=== PATIENT | female | born 1970 | race American Indian/Alaskan Native ===

== ENCOUNTER 2016-12-20 17:45 | Emergency (ER) | payer SELFPAY ==
[2016-12-20 17:52] VITALS: BP 136/83
[2016-12-20 18:40] LABS: Basophils % (Auto) 0.7 % (0.0-1.8); Hematocrit 38.6 % (30.3-42.9); Hemoglobin 12.7 gm/dl (10.1-14.3); Mean Corpuscular HGB Conc 33 % (30-34); Mean Corpuscular Hemoglobin 28 pg (28-32); Mean Corpuscular Volume 86 fl (79-97); Platelet Count 259 K/mm3 (140-440); Red Blood Count 4.51 M/mm3 (3.65-5.03); Red Cell Distribution Width 14.8 % (13.2-15.2); White Blood Count 6.4 K/mm3 (4.5-11.0)
--- NOTE | 2016-12-20 18:40 | Emergency Department Report ---
Chief Complaint: Chest Pain Stated Complaint: CHEST PAIN Time Seen by Provider: 12/20/16 18:21 - HPI History of Present Illness: Patient complain in off chest pain that started at around 4:10 PM while driving. She said the pain was to the Center for chest and radiated to back and right breast. She denies any nausea or vomiting. She said the pain was taken of breath. Described pain as 10 out of 10 and pressure. She says she took 2 baby aspirin. She said the pain lasted for 1 hour. Denies any pain at process present. Denies any shortness of breath at present. She has a history of hypertension which is controlled .denies any history of blood clots. Her last menstrual period was 12/17/2016. Denies taking hormones. Denies any family history of blood clots. Denies any swelling to her extremities. Denies any recent long distance travel by airplane or car. - ROS Review of Systems: All systems are negative unless stated in HPI above - Exam Vital Signs: Vital Signs 12/20/16 17:47 Temperature 98.3 F Pulse Rate 70 Respiratory 18 Rate Blood Pressure 136/83 O2 Sat by Pulse 99 Oximetry Physical Exam: Gen.: 46-year-old female well-nourished well-developed in no acute distress. Heart : S1, S2. Regular rate and rhythm negative murmur Lungs: Clear to auscultate bilaterally, no rhonchi wheezes or rales. MSE screening note: Focused history and physical exam performed. Due to findings the following was ordered: ED Medical Decision Making - Medical Decision Making MDM: Patient screened by provider in triage area. Appropriate protocol initiated and patient to be seen in main ED by ED Disposition for MSE Condition: Stable
[2016-12-20 18:49] LABS: Anion Gap 14 mmol/L; BUN/Creatinine Ratio 28; Blood Urea Nitrogen 11 mg/dL (7-17); Calcium 9.1 mg/dL (8.4-10.2); Carbon Dioxide 28 mmol/L (22-30); Chloride 97.3 mmol/L (98-107); Glucose 94 mg/dL (65-100); Potassium 3.5 mmol/L (3.6-5.0); Sodium 136 mmol/L (137-145)
[2016-12-20 19:22] LABS: INR 0.97 (0.87-1.13)
[2016-12-20 19:23] LABS: Partial Thromboplastin Time 32.5 Sec. (24.2-36.6)
[2016-12-20 19:47] LABS: Alanine Aminotransferase 13 units/L (7-56); Albumin/Globulin Ratio 1.3 %; Alkaline Phosphatase 48 units/L (35-129); Total Protein 7.1 g/dL (6.3-8.2)
[2016-12-20 19:51] LABS: Bilirubin,Direct < 0.2 mg/dL (0-0.2)
== END 2016-12-20 21:00 | disposition left against medical advice (07) ==
LOC: ED 17:45
DX: R07.9 Chest pain, unspecified (principal); Z53.21 Procedure and treatment not carried out due to patient leaving prior to being seen by health care provider
CPT/HCPCS: 36415; 80048; 80074; 84484; 84703; 85025; 85610; 85730; 93005; 93010

== ENCOUNTER 2018-12-04 18:23 | Emergency (ER) | payer MEDICAID | END 2018-12-04 19:20 | disposition left against medical advice (07) | LOC: ED 18:23 | DX: R20.0 Anesthesia of skin (principal); Z53.21 Procedure and treatment not carried out due to patient leaving prior to being seen by health care provider ==

== ENCOUNTER 2019-03-02 08:51 | Emergency (ER) | payer SELFPAY ==
[2019-03-02 09:05] VITALS: BP 140/84
--- NOTE | 2019-03-02 12:00 | Emergency Department Report ---
- General Chief Complaint: Upper Respiratory Infection Stated Complaint: EAR INFECTION/URI Time Seen by Provider: 03/02/19 11:11 Source: patient Mode of arrival: Ambulatory Limitations: No Limitations - History of Present Illness Initial Comments: Pleasant 48-year-old female since immerse positive chief complaint of right ear pain 3 days. Patient denies any associated fevers, chills, night sweats, headache and dizziness, vision, chest pain, shortness of breath or any associated symptoms. Pain is a 4-10 in severity described as pressure. Eyes any radiating pain. MD Complaint: fever - Related Data Previous Rx's Medication Instructions Recorded Last Taken Type amLODIPine 5 mg PO DAILY #30 tablet 11/08/15 12/28/15 Rx hydroCHLOROthiazide [HCTZ] 25 mg PO QDAY #30 capsule 11/08/15 12/28/15 Rx Cyclobenzaprine HCl [Flexeril 5 MG 5 mg PO Q8HR PRN #12 tab 12/29/15 Unknown Rx TAB] HYDROcodone/APAP 7.5-325 [[place] 1 each PO Q8HR PRN #10 tablet 12/29/15 Unknown Rx 7.5-325 mg TAB] Amoxicillin/Potassium Clav 1 each PO BID #20 tablet 03/02/19 Unknown Rx [Augmentin 875-125 Tablet] Allergies Allergy/AdvReac Type Severity Reaction Status Date / Time lisinopril Allergy COUGH Verified 12/29/15 04:55 oxycodone HCl Allergy Itching Verified 12/29/15 04:55 [From OxyContin] ED Review of Systems ROS: Stated complaint: EAR INFECTION/URI Other details as noted in HPI Comment: All other systems reviewed and negative Constitutional: denies: chills, fever Eyes: denies: eye pain, eye discharge, vision change ENT: as per HPI, ear pain. denies: throat pain Respiratory: denies: cough, shortness of breath, wheezing Cardiovascular: denies: chest pain, palpitations Endocrine: no symptoms reported Gastrointestinal: denies: abdominal pain, nausea, diarrhea Genitourinary: denies: urgency, dysuria, discharge Musculoskeletal: denies: back pain, joint swelling, arthralgia Skin: denies: rash, lesions Neurological: denies: headache, weakness, paresthesias Psychiatric: denies: anxiety, depression Hematological/Lymphatic: denies: easy bleeding, easy bruising ED Past Medical Hx - Past Medical History Previous Medical History?: Yes Hx Hypertension: Yes Additional medical history: OBESITY - Surgical History Past Surgical History?: Yes Hx Breast Surgery: Yes (BREAST REDUCTION) Additional Surgical History: laP-band, c section. fibroid removal - Social History Smoking Status: Never Smoker Substance Use Type: None - Medications Home Medications: Home Medications Medication Instructions Recorded Confirmed Last Taken Type amLODIPine 5 mg PO DAILY #30 tablet 11/08/15 12/29/15 12/28/15 Rx hydroCHLOROthiazide [HCTZ] 25 mg PO QDAY #30 capsule 11/08/15 12/29/15 12/28/15 Rx Cyclobenzaprine HCl [Flexeril 5 MG 5 mg PO Q8HR PRN #12 tab 12/29/15 Unknown Rx TAB] HYDROcodone/APAP 7.5-325 [[place] 1 each PO Q8HR PRN #10 tablet 12/29/15 Unknown Rx 7.5-325 mg TAB] Amoxicillin/Potassium Clav 1 each PO BID #20 tablet 03/02/19 Unknown Rx [Augmentin 875-125 Tablet] ED Physical Exam - General Limitations: No Limitations General appearance: alert, in no apparent distress - Head Head exam: Present: atraumatic, normocephalic - Eye Eye exam: Present: normal appearance, PERRL, EOMI Pupils: Present: normal accommodation - ENT ENT exam: Present: mucous membranes moist, other (erythema and bulging to the right TM. Mild erythema to the external auditory canal. No mastoid tenderness.) - Neck Neck exam: Present: normal inspection. Absent: meningismus - Respiratory Respiratory exam: Present: normal lung sounds bilaterally. Absent: respiratory distress - Cardiovascular Cardiovascular Exam: Present: regular rate, normal rhythm. Absent: systolic murmur, diastolic murmur, rubs, gallop - GI/Abdominal GI/Abdominal exam: Present: soft, normal bowel sounds - Extremities Exam Extremities exam: Present: normal inspection - Back Exam Back exam: Present: normal inspection - Neurological Exam Neurological exam: Present: alert, oriented X3 - Psychiatric Psychiatric exam: Present: normal affect, normal mood - Skin Skin exam: Present: warm, dry, intact, normal color. Absent: rash ED Course Vital Signs 03/02/19 09:02 Temperature 98.6 F Pulse Rate 76 Respiratory 18 Rate Blood Pressure 140/84 Blood Pressure 140/84 [Right] O2 Sat by Pulse 96 Oximetry ED Medical Decision Making - Medical Decision Making Patient's exam was consistent with otitis media. I will treat with Augmentin. Recommended naproxen for pain and follow-up with PCP. Patient had no symptoms of malignant otitis externa or meningitis on exam. Return emergently changing worsening symptoms. She verbalizes understanding of the diagnosis, treatment plan and follow-up instructions - Differential Diagnosis otitis media, otitis externa, mastoiditis Critical care attestation.: If time is entered above; I have spent that time in minutes in the direct care of this critically ill patient, excluding procedure time. ED Disposition Clinical Impression: Otitis media Qualifiers: Otitis media type: suppurative Chronicity: acute Laterality: right Recurrence: non-recurrent Spontaneous tympanic membrane rupture: without spontaneous rupture Qualified Code(s): H66.001 - Acute suppurative otitis media without spontaneous rupture of ear drum, right ear Disposition: DC- TO HOME OR SELFCARE Is pt being admited?: No Does the pt Need Aspirin: No Condition: Stable Instructions: Otitis Media (ED) Prescriptions: Amoxicillin/Potassium Clav [Augmentin 875-125 Tablet] 1 each PO BID #20 tablet Referrals: AGNES EL MD [Primary Care Provider] - 3-5 Days Time of Disposition: 12:00
== END 2019-03-02 12:17 | disposition home or self-care (01) ==
LOC: ED 08:51
DX: H66.001 Acute suppurative otitis media without spontaneous rupture of ear drum, right ear (principal); I10 Essential (primary) hypertension; Z98.890 Other specified postprocedural states; Z79.899 Other long term (current) drug therapy; Z88.6 Allergy status to analgesic agent; Z88.1 Allergy status to other antibiotic agents
CPT/HCPCS: 99282

== ENCOUNTER 2019-04-08 06:51 | Emergency (ER) | payer SELFPAY ==
[2019-04-08 06:57] VITALS: BP 146/86
[2019-04-08 08:23] LABS: Basophils % (Auto) 0.6 % (0.0-1.8); Eosinophils # (Auto) 0.2 K/mm3 (0.0-0.4); Eosinophils % (Auto) 3.1 % (0.0-4.3); Hematocrit 36.4 % (30.3-42.9); Hemoglobin 12.2 gm/dl (10.1-14.3); Lymphocytes # (Auto) 2.2 K/mm3 (1.2-5.4); Lymphocytes % (Auto) 29.8 % (13.4-35.0); Mean Corpuscular HGB Conc 34 % (30-34); Mean Corpuscular Volume 87 fl (79-97); Monocytes # (Auto) 0.8 K/mm3 (0.0-0.8); Monocytes % (Auto) 10.8 % (0.0-7.3); Platelet Count 242 K/mm3 (140-440); Red Blood Count 4.18 M/mm3 (3.65-5.03); Red Cell Distribution Width 14.2 % (13.2-15.2)
[2019-04-08 08:40] LABS: Alanine Aminotransferase 13 units/L (7-56); Albumin 3.6 g/dL (3.9-5); BUN/Creatinine Ratio 30; Blood Urea Nitrogen 12 mg/dL (7-17); Hemolysis Index 3
[2019-04-08 09:37] LABS: Bilirubin,Urine NEG (Negative); Blood,Urine NEG (Negative); Color,Urine Yellow (Yellow); Mucus,Urine FEW /HPF; Protein,Urine <15 mg/dL mg/dL (Negative); Urobilinogen,Urine < 2.0 mg/dL (<2.0)
[2019-04-08] MEDS ORDERED: IBUPROFEN 800 MG TAB PO ONE (10:16)
--- NOTE | 2019-04-08 10:34 | Emergency Department Report ---
ED Female HPI - General Chief complaint: Back Pain/Injury Stated complaint: FLANK PAIN, BILATERAL EAR PAIN, SORE THROAT Time Seen by Provider: 04/08/19 09:52 Source: patient Mode of arrival: Ambulatory Limitations: No Limitations - History of Present Illness Initial comments: This is a 48-year-old female nontoxic, well nourished in appearance, no acute signs of distress presents to the ED with c/o of dysuria, right flank pain, urinary frequency x3 days. Patient stated has history of frequent UTIs and symptoms are similar. Patient denies any vaginal discharge, bleeding, ulcers or lesions. Patient denies any back pain. Patient denies any pelvic or abdominal pain. Patient denies any nausea, vomiting, chest pain, shortness of breathe, fever, chills, headache, back pain, numbness, tingling, stiff neck. Patient denies any urinary symptoms. Patient stated allergies to lisionpril and oxycopdone. PMH includes HTN. MD Complaint: dysuria, other (flank pain) -: days(s) (3) Radiation: non-radiating Severity: mild Severity scale (0 -10): 8 Quality: aching, other (dysuria) Consistency: constant Improves with: none Worsens with: urination Are you Now?: No Associated Symptoms: dysuria. denies: vaginal discharge, vaginal bleeding, abdominal pain, nausea/vomiting, fever/chills, headaches, loss of appetite, hematuria, rash, seizure, shortness of breath, syncope, weakness - Related Data Previous Rx's Medication Instructions Recorded Last Taken Type amLODIPine 5 mg PO DAILY #30 tablet 11/08/15 12/28/15 Rx hydroCHLOROthiazide [HCTZ] 25 mg PO QDAY #30 capsule 11/08/15 12/28/15 Rx Cyclobenzaprine HCl [Flexeril 5 MG 5 mg PO Q8HR PRN #12 tab 12/29/15 Unknown Rx TAB] HYDROcodone/APAP 7.5-325 [[place] 1 each PO Q8HR PRN #10 tablet 12/29/15 Unknown Rx 7.5-325 mg TAB] Amoxicillin/Potassium Clav 1 each PO BID #20 tablet 03/02/19 Unknown Rx [Augmentin 875-125 Tablet] Ondansetron [Zofran Odt] 4 mg PO Q8HR 30 Days tab.rapdis 03/02/19 Unknown Rx Naproxen 500 mg PO Q12H PRN #20 tablet 04/08/19 Unknown Rx Sulfamethoxazole/Trimethoprim 1 each PO BID #14 tablet 04/08/19 Unknown Rx [Bactrim DS TAB] Allergies Allergy/AdvReac Type Severity Reaction Status Date / Time lisinopril Allergy COUGH Verified 12/29/15 04:55 oxycodone HCl Allergy Itching Verified 12/29/15 04:55 [From OxyContin] ED Review of Systems ROS: Stated complaint: FLANK PAIN, BILATERAL EAR PAIN, SORE THROAT Other details as noted in HPI Constitutional: denies: chills, fever Eyes: denies: eye pain, eye discharge, vision change ENT: denies: ear pain, throat pain Respiratory: denies: cough, shortness of breath, wheezing Cardiovascular: denies: chest pain, palpitations Endocrine: no symptoms reported Gastrointestinal: denies: abdominal pain, nausea, diarrhea Genitourinary: dysuria, frequency. denies: urgency, hematuria, discharge, abnormal menses, dyspareunia Musculoskeletal: denies: back pain, joint swelling, arthralgia Skin: denies: rash, lesions Neurological: denies: headache, weakness, paresthesias Psychiatric: denies: anxiety, depression Hematological/Lymphatic: denies: easy bleeding, easy bruising ED Past Medical Hx - Past Medical History Previous Medical History?: Yes Hx Hypertension: Yes Additional medical history: OBESITY - Surgical History Past Surgical History?: Yes Hx Breast Surgery: Yes (BREAST REDUCTION) Additional Surgical History: laP-band, c section. fibroid removal - Social History Smoking Status: Never Smoker Substance Use Type: None - Medications Home Medications: Home Medications Medication Instructions Recorded Confirmed Last Taken Type amLODIPine 5 mg PO DAILY #30 tablet 11/08/15 12/29/15 12/28/15 Rx hydroCHLOROthiazide [HCTZ] 25 mg PO QDAY #30 capsule 11/08/15 12/29/15 12/28/15 Rx Cyclobenzaprine HCl [Flexeril 5 MG 5 mg PO Q8HR PRN #12 tab 12/29/15 Unknown Rx TAB] HYDROcodone/APAP 7.5-325 [[place] 1 each PO Q8HR PRN #10 tablet 12/29/15 Unknown Rx 7.5-325 mg TAB] Amoxicillin/Potassium Clav 1 each PO BID #20 tablet 12/27/19 Unknown Rx [Augmentin 875-125 Tablet] Ondansetron [Zofran Odt] 4 mg PO Q8HR 30 Days tab.rapdis 03/02/19 Unknown Rx Naproxen 500 mg PO Q12H PRN #20 tablet 04/08/19 Unknown Rx Sulfamethoxazole/Trimethoprim 1 each PO BID #14 tablet 04/08/19 Unknown Rx [Bactrim DS TAB] ED Physical Exam - General Limitations: No Limitations General appearance: alert, in no apparent distress - Head Head exam: Present: atraumatic, normocephalic - Neck Neck exam: Present: normal inspection, full ROM. Absent: tenderness, meningismus, lymphadenopathy - GI/Abdominal GI/Abdominal exam: Present: soft, normal bowel sounds. Absent: distended, tenderness, guarding, rebound, rigid, diminished bowel sounds - Extremities Exam Extremities exam: Present: normal inspection, full ROM - Back Exam Back exam: Present: normal inspection, full ROM, paraspinal tenderness (left lumbar paraspinal). Absent: tenderness, CVA tenderness (R), CVA tenderness (L), muscle spasm, vertebral tenderness, rash noted - Expanded Back Exam Expanded Back exam: Absent: saddle anesthesia Back exam: Negative Straight Leg Raising: Left, Right - Neurological Exam Neurological exam: Present: alert, oriented X3, normal gait - Psychiatric Psychiatric exam: Present: normal affect, normal mood - Skin Skin exam: Present: warm, dry, intact, normal color. Absent: rash ED Course Vital Signs 04/08/19 04/08/19 06:56 10:22 Temperature 97.6 F Pulse Rate 77 Respiratory 18 18 Rate Blood Pressure 146/86 O2 Sat by Pulse 96 Oximetry - Reevaluation(s) Reevaluation #1: 04/08/19 10:36 Patient is speaking in full sentences with no signs of distress noted. ED Medical Decision Making - Lab Data Result diagrams: 04/08/19 07:44 04/08/19 07:44 - Medical Decision Making This is a 48-year-old female that presents with dysuria. Patient is stable and was examined by me. UA obtained. Urine culture pending. Will treat wit bactrim due to symptoms of frequent UTI and similar symptoms. Patient does not have any CVA tenderness. No signs or symptoms of pyelonephritis. Patient received Motrin in the ED. Patient is discharged with Bactrim. Patient was instructed to Follow-up with a primary care doctor in 3-5 days or if symptoms worsen and continue return to emergency room as soon as possible. At time of discharge, the patient does not seem toxic or ill in appearance. No acute signs of distress noted. Patient agrees to discharge treatment plan of care. No further questions noted by the patient. Critical care attestation.: If time is entered above; I have spent that time in minutes in the direct care of this critically ill patient, excluding procedure time. ED Disposition Clinical Impression: Dysuria Disposition: DC-01 TO HOME OR SELFCARE Is pt being admited?: No Does the pt Need Aspirin: No Condition: Stable Instructions: Dysuria (ED) Additional Instructions: Follow-up with a primary care doctor in 3-5 days or if symptoms worsen and continue return to emergency room as soon as possible. Prescriptions: Sulfamethoxazole/Trimethoprim [Bactrim DS TAB] 1 each PO BID #14 tablet Naproxen 500 mg PO Q12H PRN #20 tablet PRN Reason: Pain, Moderate (4-6) Referrals: PRIMARY CAREMD [Primary Care Provider] - 3-5 Days DEE HARVEY MD [Staff Physician] - 3-5 Days [facility] [Outside] - 3-5 Days Forms: Work/School Release Form(ED)
== END 2019-04-08 11:35 | disposition home or self-care (01) ==
LOC: ED 06:51
DX: R30.0 Dysuria (principal); I10 Essential (primary) hypertension; Z79.899 Other long term (current) drug therapy; Z88.8 Allergy status to other drugs, medicaments and biological substances
CPT/HCPCS: 36415; 80053; 81001; 85025; 87086

== ENCOUNTER 2019-04-14 14:01 | Emergency (ER) | payer SELFPAY ==
--- NOTE | 2019-04-14 16:12 | Event Note ---
ED Screening Note Date of service: 04/14/19 Time: 15:42 ED Screening Note: 48 yo F w/ hx kidney stones presents to ED w/ right flank, RUQ pain x 1 week. Pt was seen last week and given prescription for bactrim and naprosyn. Pt states pain is getting worse. States no imaging was done at the last visit. Pt staes usually has pain only to right mid back w/ her kidney stones, but reports associated RUQ abdominal pain currently. No hx of gallstones in the past. Reports onset of N/V yesterday. This initial assessment/diagnostic orders/clinical plan/treatment(s) is/are subject to change based on patients health status, clinical progression and re- assessment by fellow clinical providers in the ED. Further treatment and workup at subsequent clinical providers discretion. Patient/guardian urged not to elope from the ED as their condition may be serious if not clinically assessed and dian lopez. Initial orders include: CT Abd/ Pelvis labs
[2019-04-14 17:13] LABS: Basophils # (Auto) 0.1 K/mm3 (0.0-0.1); Basophils % (Auto) 0.5 % (0.0-1.8); Eosinophils # (Auto) 0.1 K/mm3 (0.0-0.4); Eosinophils % (Auto) 1.3 % (0.0-4.3); Hematocrit 39.7 % (30.3-42.9); Hemoglobin 13.3 gm/dl (10.1-14.3); Lymphocytes # (Auto) 3.1 K/mm3 (1.2-5.4); Lymphocytes % (Auto) 31.9 % (13.4-35.0); Mean Corpuscular HGB Conc 34 % (30-34); Mean Corpuscular Volume 87 fl (79-97); Monocytes % (Auto) 9.9 % (0.0-7.3); Platelet Count 265 K/mm3 (140-440); Red Blood Count 4.59 M/mm3 (3.65-5.03); Red Cell Distribution Width 14.3 % (13.2-15.2)
[2019-04-14 17:33] LABS: Alanine Aminotransferase 20 units/L (7-56); Albumin 4.2 g/dL (3.9-5); BUN/Creatinine Ratio 20; Blood Urea Nitrogen 10 mg/dL (7-17); Calcium 9.3 mg/dL (8.4-10.2); Hemolysis Index 7
--- NOTE | 2019-04-14 19:06 | Cat Scan Report ---
CT abdomen pelvis wo con INDICATION: right flank pain. TECHNIQUE: All CT scans at this location are performed using the following dose modulation technique: Automated exposure control. CONTRAST: None. COMPARISON: 07/02/2013. CT ABDOMEN: The parenchymal organs are unremarkable in appearance. Negative for abdominal mass, fluid or inflammation. The bowel is not dilated or thickened. Status post previous gastric banding. Negative for abdominal mass, fluid or inflammation. A small fat -containing ventral hernia is seen just to the right of the midline above the umbilicus. Mild diastas es is noted at the rectus muscles. CT PELVIS: Negative for mass, fluid collection or inflammation. A possible right ovarian cyst is not well evaluated. A normal appendix is identified. IMPRESSION: 1. Negative for obstruction or localized inflammation. 2. Small fat-containing ventral hernia. 3. Possible small right ovarian cyst. Signer Name: Cecil Canales MD Signed: 04/14/2019 7:02 PM Workstation Name: [id number]
[2019-04-14] MEDS ORDERED: MORPHINE 4 MG/1 ML INJ IM ONE (19:42)
[2019-04-14] MEDS ORDERED: ONDANSETRON 4 MG ODT TAB PO ONE (19:42)
[2019-04-14] MEDS ORDERED: diphenhydrAMINE 25 MG CAP PO ONE (19:42)
--- NOTE | 2019-04-14 19:51 | Emergency Department Report ---
ED Abdominal Pain HPI - General Chief Complaint: Abdominal Pain Stated Complaint: KIDNEY STONES Source: patient Mode of arrival: Ambulatory Limitations: No Limitations - History of Present Illness Initial Comments: Patient is a 48-year-old -Japanese female with a history of hypertension and remote history of kidney stones presents to the ED with complaint of acute onset persistent right flank pain that radiates to the right upper quadrant for the last 2 weeks. Patient states that she was initially evaluated at this facility about one week ago and diagnosed with acute urinary tract infection and has been taking Bactrim DS for the same kind naproxen as needed for pain. Patient states that these medications are not helped her symptoms. Patient states that in the last 2 days the symptoms have worsened. Patient denies vaginal bleeding, vaginal discharge, dysuria, hematuria, chest pain, shortness of breath, diarrhea, vomiting, dizziness, numbness and tingling or weakness of lower extremities bilaterally. MD Complaint: abdominal pain, flank pain (right ), other (nausea) -: Gradual, week(s) (2) Location: RUQ, R flank Radiation: RUQ, R flank Migration to: no migration Severity: severe Severity scale (0 -10): 7 Quality: aching, sharp Consistency: constant Improves With: nothing Worsens With: nothing Associated Symptoms: denies other symptoms, nausea. denies: vomiting, fever, chills, constipation, dysuria, hematemesis, hematochezia, melena, hematuria, ano rexia, syncope, other - Related Data Previous Rx's Medication Instructions Recorded Last Taken Type amLODIPine 5 mg PO DAILY #30 tablet 11/08/15 12/28/15 Rx hydroCHLOROthiazide [HCTZ] 25 mg PO QDAY #30 capsule 11/08/15 12/28/15 Rx Cyclobenzaprine HCl [Flexeril 5 MG 5 mg PO Q8HR PRN #12 tab 12/29/15 Unknown Rx TAB] HYDROcodone/APAP 7.5-325 [[place] 1 each PO Q8HR PRN #10 tablet 12/29/15 Unknown Rx 7.5-325 mg TAB] Amoxicillin/Potassium Clav 1 each PO BID #20 tablet 03/02/19 Unknown Rx [Augmentin 875-125 Tablet] Ondansetron [Zofran Odt] 4 mg PO Q8HR 30 Days tab.rapdis 03/02/19 Unknown Rx Naproxen 500 mg PO Q12H PRN #20 tablet 04/08/19 Unknown Rx Sulfamethoxazole/Trimethoprim 1 each PO BID #14 tablet 04/08/19 Unknown Rx [Bactrim DS TAB] Ketorolac [Toradol] 10 mg PO Q6H PRN #20 tablet 04/14/19 Unknown Rx Ondansetron [Zofran Odt] 4 mg PO Q8HR #20 tab.rapdis 04/14/19 Unknown Rx tiZANidine [Zanaflex 4mg TAB] 4 mg PO Q8H PRN #21 tablet 04/14/19 Unknown Rx traMADoL [Ultram 50 MG tab] 50 mg PO Q6HR PRN #15 tablet 04/14/19 Unknown Rx Allergies Allergy/AdvReac Type Severity Reaction Status Date / Time lisinopril Allergy COUGH Verified 12/29/15 04:55 oxycodone HCl Allergy Itching Verified 12/29/15 04:55 [From OxyContin] ED Review of Systems ROS: Stated complaint: KIDNEY STONES Other details as noted in HPI Constitutional: malaise Eyes: denies: eye pain, eye discharge, vision change ENT: denies: ear pain, throat pain Respiratory: denies: cough, shortness of breath, wheezing Cardiovascular: denies: chest pain, palpitations Endocrine: no symptoms reported Gastrointestinal: abdominal pain (right flank ), nausea. denies: vomiting, diarrhea, constipation, hematemesis, hematochezia Genitourinary: denies: urgency, dysuria, discharge Musculoskeletal: denies: back pain, joint swelling, arthralgia Skin: denies: rash, lesions Neurological: denies: headache, weakness, paresthesias Psychiatric: denies: anxiety, depression Hematological/Lymphatic: denies: easy bleeding, easy bruising ED Past Medical Hx - Past Medical History Previous Medical History?: Yes Hx Hypertension: Yes Additional medical history: OBESITY - Surgical History Past Surgical History?: Yes Hx Breast Surgery: Yes (BREAST REDUCTION) Additional Surgical History: laP-band, c section. fibroid removal - Social History Smoking Status: Former Smoker Substance Use Type: Alcohol - Medications Home Medications: Home Medications Medication Instructions Recorded Confirmed Last Taken Type amLODIPine 5 mg PO DAILY #30 tablet 11/08/15 12/29/15 12/28/15 Rx hydroCHLOROthiazide [HCTZ] 25 mg PO QDAY #30 capsule 11/08/15 12/29/15 12/28/15 Rx Cyclobenzaprine HCl [Flexeril 5 MG 5 mg PO Q8HR PRN #12 tab 12/29/15 Unknown Rx TAB] HYDROcodone/APAP 7.5-325 [[place] 1 each PO Q8HR PRN #10 tablet 12/29/15 Unknown Rx 7.5-325 mg TAB] Amoxicillin/Potassium Clav 1 each PO BID #20 tablet 03/02/19 Unknown Rx [Augmentin 875-125 Tablet] Ondansetron [Zofran Odt] 4 mg PO Q8HR 30 Days tab.rapdis 03/02/19 Unknown Rx Naproxen 500 mg PO Q12H PRN #20 tablet 04/08/19 Unknown Rx Sulfamethoxazole/Trimethoprim 1 each PO BID #14 tablet 04/08/19 Unknown Rx [Bactrim DS TAB] Ketorolac [Toradol] 10 mg PO Q6H PRN #20 tablet 04/14/19 Unknown Rx Ondansetron [Zofran Odt] 4 mg PO Q8HR #20 tab.rapdis 04/14/19 Unknown Rx tiZANidine [Zanaflex 4mg TAB] 4 mg PO Q8H PRN #21 tablet 04/14/19 Unknown Rx traMADoL [Ultram 50 MG tab] 50 mg PO Q6HR PRN #15 tablet 04/14/19 Unknown Rx ED Physical Exam - General Limitations: No Limitations General appearance: alert, in no apparent distress - Head Head exam: Present: atraumatic, normocephalic, normal inspection - Eye Eye exam: Present: normal appearance, PERRL, EOMI Pupils: Present: normal accommodation - ENT ENT exam: Present: normal exam, normal orophraynx, mucous membranes moist, normal external ear exam - Neck Neck exam: Present: normal inspection, full ROM. Absent: tenderness, meningismus, lymphadenopathy, thyromegaly - Respiratory Respiratory exam: Present: normal lung sounds bilaterally. Absent: respiratory distress, wheezes, rales, rhonchi, chest wall tenderness, accessory muscle use, decreased breath sounds - Cardiovascular Cardiovascular Exam: Present: regular rate, normal rhythm, normal heart sounds. Absent: systolic murmur, diastolic murmur, rubs, gallop - GI/Abdominal GI/Abdominal exam: Present: soft, tenderness (Palpable right flank tenderness), normal bowel sounds. Absent: guarding, rebound, hyperactive bowel sounds, hypoactive bowel sounds, organomegaly, mass, pulsatile mass - Extremities Exam Extremities exam: Present: normal inspection, full ROM, normal capillary refill - Back Exam Back exam: Present: normal inspection, full ROM. Absent: tenderness, CVA tenderness (R), CVA tenderness (L), paraspinal tenderness, vertebral tenderness - Neurological Exam Neurological exam: Present: alert, oriented X3, CN II-XII intact, normal gait, reflexes normal - Psychiatric Psychiatric exam: Present: normal affect, normal mood - Skin Skin exam: Present: warm, dry, intact, normal color. Absent: rash ED Course Vital Signs 04/14/19 04/14/19 04/14/19 14:07 15:32 20:30 Temperature 99.0 F 99 F Pulse Rate 94 H 87 Respiratory 16 16 20 Rate Blood Pressure 157/87 157/87 O2 Sat by Pulse 97 98 Oximetry ED Medical Decision Making - Lab Data Result diagrams: 04/14/19 16:35 04/14/19 16:35 - Radiology Data Radiology results: report reviewed, image reviewed Findings [facility] [address] [place] [address] Cat Scan Report Signed Patient: MARIA ELENA TRISTAN MR#: [id number] : 1970 Acct:[id number] Age/Sex: 48 / F ADM Date: 04/14/19 Loc: ED Attending Dr: Ordering Physician: GRACE AMBROSIO MD Date of Service: 04/14/19 Procedure(s): CT abdomen pelvis wo con Accession Number(s): [id number] cc: GRACE AMBROSIO MD CT abdomen pelvis wo con INDICATION: right flank pain. TECHNIQUE: All CT scans at this location are performed using the following dose modulation technique: Automated exposure control. CONTRAST: None. COMPARISON: 07/02/2013. CT ABDOMEN: The parenchymal organs are unremarkable in appearance. Negative for abdominal mass, fluid or inflammation. The bowel is not dilated or thickened. Status post previous gastric banding. Negative for abdominal mass, fluid or inf lammation. A small fat-containing ventral hernia is seen just to the right of the midline above the umbilicus. Mild diastases is noted at the rectus muscles. CT PELVIS: Negative for mass, fluid collection or inflammation. A possible right ovarian cyst is not well evaluated. A normal appendix is identified. IMPRESSION: 1. Negative for obstruction or localized inflammation. 2. Small fat-containing ventral hernia. 3. Possible small right ovarian cyst. Signer Name: Cecil Canales MD Signed: 04/14/2019 7:02 PM Workstation Name: [id number] Transcribed By: ES Dictated By: Cecil Canales MD Electronically Authenticated By: Cecil Canales MD Signed Date/Time: 04/14/191901 DD/ 54 TD/TT: - Medical Decision Making This is a 48-year-old female who presented to the ED with right flank pain for 2 weeks. In the ED, patient is alert and oriented 3 and is not in any distress but appears to be in pain. Lab test results were reviewed and are all nonactionable. Abdomen pelvis CT scan without contrast was negative for obstruction or localized inflammation. It also showed small fat-containing ventral hernia, and a possible small right ovarian cyst. The patient was treated for pain in the ED and on reevaluation, patient's pain is well co ntrolled with medications. Patient was discharged home on pain medications and advised to follow-up with her primary care physician in 5-7 days for reevaluation or return to the ED immediately if symptoms get worse. - Differential Diagnosis Kidney stones; UTI; Gallstones; Muscle strain; Muscle spasm Critical care attestation.: If time is entered above; I have spent that time in minutes in the direct care of this critically ill patient, excluding procedure time. ED Disposition Clinical Impression: Acute abdominal pain in right flank, Spasm of thoracic back muscle Nausea & vomiting Qualifiers: Vomiting type: unspecified Vomiting Intractability: non-intractable Qualified Code(s): R11.2 - Nausea with vomiting, unspecified Disposition: DC-01 TO HOME OR SELFCARE Is pt being admited?: No Does the pt Need Aspirin: No Condition: Stable Instructions: Flank Pain (ED) Additional Instructions: Take medication with food, drink plenty of fluids and follow up with your Primary Care Physician in 5-7 days for reevaluation. Return to the ED immediately if symptoms get worse Prescriptions: Ketorolac [Toradol] 10 mg PO Q6H PRN #20 tablet PRN Reason: Pain traMADoL [Ultram 50 MG tab] 50 mg PO Q6HR PRN #15 tablet PRN Reason: Pain tiZANidine [Zanaflex 4mg TAB] 4 mg PO Q8H PRN #21 tablet PRN Reason: Muscle Spasm Ondansetron [Zofran Odt] 4 mg PO Q8HR #20 tab.stephanie Referrals: PRIMARY CARE,MD [Primary Care Provider] - 3-5 Days [facility] [Outside] - 3-5 Days Time of Disposition: 20:12 Print Language: MONTENEGRIN
[2019-04-14 20:03] LABS: Bacteria,Urine 1+ /HPF (Negative); Bilirubin,Urine NEG (Negative); Blood,Urine NEG (Negative); Color,Urine Yellow (Yellow); Mucus,Urine FEW /HPF; Protein,Urine <15 mg/dL mg/dL (Negative)
[2019-04-14 21:28] VITALS: BP 139/88
== END 2019-04-14 21:30 | disposition home or self-care (01) ==
LOC: ED 14:01
DX: R10.811 Right upper quadrant abdominal tenderness (principal); M62.838 Other muscle spasm; R11.2 Nausea with vomiting, unspecified; I10 Essential (primary) hypertension; Z87.891 Personal history of nicotine dependence; Z98.890 Other specified postprocedural states; Z79.899 Other long term (current) drug therapy; Z79.2 Long term (current) use of antibiotics; Z88.2 Allergy status to sulfonamides; Z88.8 Allergy status to other drugs, medicaments and biological substances
CPT/HCPCS: 36415; 74176; 80048; 80053; 81001; 84702; 85025; 96372; 99284; J2270; Q0162

== ENCOUNTER 2019-08-01 16:44 | Emergency (ER) | payer MEDICAID ==
[2019-08-01 16:49] VITALS: BP 146/81
[2019-08-01] MEDS ORDERED: ASPIRIN 325 MG TAB PO ONE (16:56)
--- NOTE | 2019-08-01 17:32 | XRay Report ---
CHEST 1 VIEW 5:17 PM INDICATION / CLINICAL INFORMATION: Chest Pain. COMPARISON: None currently available. FINDINGS: SUPPORT DEVICES: None. HEART / MEDIASTINUM: The heart size and pulmonary vasculature are normal. The aorta is normal in jacquie smita. LUNGS / PLEURA: No significant pulmonary or pleural abnormality. No pneumothorax. ADDITIONAL FINDINGS: There is prior lap band surgery. IMPRESSION: No acute findings. Signer Name: Everett Vogel MD Signed: 08/01/2019 5:27 PM Workstation Name: [id number]
[2019-08-01 17:55] LABS: Basophils % (Auto) 0.4 % (0.0-1.8); Eosinophils # (Auto) 0.2 K/mm3 (0.0-0.4); Eosinophils % (Auto) 2.3 % (0.0-4.3); Hemoglobin 12.7 gm/dl (10.1-14.3); Lymphocytes # (Auto) 2.9 K/mm3 (1.2-5.4); Lymphocytes % (Auto) 32.8 % (13.4-35.0); Mean Corpuscular HGB Conc 33 % (30-34); Mean Corpuscular Volume 87 fl (79-97); Monocytes # (Auto) 0.9 K/mm3 (0.0-0.8); Monocytes % (Auto) 10.3 % (0.0-7.3); Platelet Count 241 K/mm3 (140-440); Red Blood Count 4.36 M/mm3 (3.65-5.03); Red Cell Distribution Width 14.2 % (13.2-15.2)
[2019-08-01 18:17] LABS: BUN/Creatinine Ratio 17; Blood Urea Nitrogen 10 mg/dL (7-17); Calcium 9.1 mg/dL (8.4-10.2); Hemolysis Index 1
== END 2019-08-01 20:39 | disposition left against medical advice (07) ==
LOC: ED 16:44
DX: R00.2 Palpitations (principal); Z53.21 Procedure and treatment not carried out due to patient leaving prior to being seen by health care provider
CPT/HCPCS: 36415; 71045; 80048; 84484; 85025; 93005

== ENCOUNTER 2020-07-11 09:07 | Outpatient (CLI) | payer MEDICAID ==
--- NOTE | 2020-07-11 11:11 | Fluoroscopy Report ---
UPPER GI HISTORY: DYSPHAGIA. TECHNIQUE: Single and double contrast barium technique utilized to evaluate the esophagus, stomach, and duodenal C-loop. FINDINGS: To begin the exam, swallowing was evaluated in the lateral position under direct fluorosco py. Swallowing was normal. A lap band is identified in the left paraspinal region which appears in good position. Contrast agent was free flowing through the lap band device. No evidence for slippage, erosion or other abnormality . No mucosal irregularity, mass, mass effect, or critical stenosis. There were no abnormal tertiary c ontractions as seen with dysmotility. No gastroesophageal reflux. IMPRESSION: Unremarkable exam. The lap band device appears in good position. Fluoroscopic time: 1.6 minutes Number of fluoroscopic images: 43 Signer Name: Luke Agarwal Jr, MD Signed: 07/11/2020 11:07 AM Workstation Name: [id number]
== END 2020-07-11 09:08 | disposition home or self-care (01) ==
LOC: FLUORO 09:07
PROVIDERS: ATTEND Surgery
DX: R13.10 Dysphagia, unspecified (principal)
CPT/HCPCS: 74246

== ENCOUNTER 2020-10-18 14:48 | Emergency (ER) | payer MEDICAID | END 2020-10-18 15:00 | disposition left against medical advice (07) | LOC: ED 14:48 | DX: R06.02 Shortness of breath (principal); Z53.21 Procedure and treatment not carried out due to patient leaving prior to being seen by health care provider ==

== ENCOUNTER 2021-06-03 07:43 | Outpatient (CLI) | payer OTHER ==
--- NOTE | 2021-06-03 08:42 | XRay Report ---
LUMBOSACRAL SPINE 3 VIEWS INDICATION: BACK PAIN. COMPARISON: None. IMPRESSION: Normal alignment. Mild degenerative changes at L3-4 and L4-5. Moderate degenerative joshua nges at L5-S1. No acute osseous or soft tissue abnormality. Signer Name: Luke Agarwal Jr, MD Signed: 06/03/2021 8:37 AM Workstation Name: [id number]
== END 2021-06-03 07:44 | disposition home or self-care (01) ==
LOC: XRAY 07:43
PROVIDERS: ATTEND Internal Medicine
DX: M47.817 Spondylosis without myelopathy or radiculopathy, lumbosacral region (principal)
CPT/HCPCS: 72100